=== PATIENT | female | born 1965 | race Caucasian/White ===

== ENCOUNTER 2017-09-20 08:32 | Outpatient (CLI) | payer OTHER ==
[~2017-09-20] VITALS: Ht 160 cm; Wt 63.0 kg
[2017-09-20 08:49] VITALS: BP 126/85
[2017-09-20] MEDS ORDERED: ACET-93 PO (08:56)
[2017-09-20] MEDS ORDERED: BACI1CAP6 PO (08:56)
[2017-09-20] MEDS ORDERED: MELO7.5T46 PO (08:56)
[2017-09-20 09:30] LABS: BILIRUBIN,URINE NEGATIVE (NEGATIVE); KETONES,URINE NEGATIVE (NEGATIVE); LEUKOCYTE ESTERASE ,URINE 1+ (NEGATIVE); NITRITE,URINE NEGATIVE (NEGATIVE); PH,URINE 8 (5-9); PROTEIN,URINE NEGATIVE (NEGATIVE); UROBILINOGEN,URINE NORMAL (NORMAL)
[2017-09-20 09:39] LABS: BASOPHILS % (AUTO) 1 % (0-10); EOSINOPHILS # (AUTO) 0.2 10^3/uL (0.0-0.3); EOSINOPHILS % (AUTO) 3 % (0-10); LYMPHOCYTES # (AUTO) 1.7 X 10^3 (1.0-4.0); LYMPHOCYTES % (AUTO) 25 % (12-44); MEAN CORPUSCULAR HEMOGLOBIN 31 PG (25-34); MEAN CORPUSCULAR HGB CONC 33 G/DL (32-36); MEAN CORPUSCULAR VOLUME 94 FL (80-99); MEAN PLATELET VOLUME 8.1 FL (7.4-10.4); MONOCYTES # (AUTO) 0.5 X 10^3 (0.0-1.0); MONOCYTES % (AUTO) 7 % (0-12); NEUTROPHILS # (AUTO) 4.5 X 10^3 (1.8-7.8); NEUTROPHILS % (AUTO) 65 % (42-75); PLATELET COUNT 342 10^3/uL (130-400); RED BLOOD COUNT 4.15 10^6/uL (4.35-5.85); RED CELL DISTRIBUTION WIDTH 13.1 % (10.0-14.5)
[2017-09-20 09:40] LABS: SQUAMOUS EPITHELIAL CELL,UR 0-2 /HPF; WBC,URINE 0-2 /HPF
[2017-09-20 09:50] LABS: INR 0.9 (0.8-1.4); PROTHROMBIN TIME PATIENT 12.1 SEC (12.2-14.7)
[2017-09-20 09:57] LABS: ANION GAP 7 MMOL/L (5-14); BLOOD UREA NITROGEN 15 MG/DL (7-18); BUN/CREATININE RATIO 20; CALCIUM 9.6 MG/DL (8.5-10.1); CARBON DIOXIDE 28 MMOL/L (21-32); CHLORIDE 104 MMOL/L (98-107); CREATININE SERUM 0.74 MG/DL (0.60-1.30); GFR ESTIMATED > 60; GLUCOSE 76 MG/DL (70-105); POTASSIUM 4.2 MMOL/L (3.6-5.0); SODIUM 139 MMOL/L (135-145)
--- NOTE | 2017-09-20 10:07 | Diagnostic Imaging Report ---
PA and lateral views of the chest. INDICATION: Right knee arthroplasty. FINDINGS: The lungs are clear. The heart size is normal. No effusion or pneumothorax. The mediastinum and ruth appear unremarkable. Surgical clips are seen in the upper outer right breast area. Mild scoliosis convex to the right at the thoracolumbar junction is seen. IMPRESSION: No acute process. Dictated by: Dictated on workstation # [id number]
== END 2017-09-20 09:40 | disposition home or self-care (01) ==
LOC: PREOP 08:32
PROVIDERS: ATTEND Orthopaedic Surgery
DX: Z01.810 Encounter for preprocedural cardiovascular examination (principal); Z01.811 Encounter for preprocedural respiratory examination; Z01.812 Encounter for preprocedural laboratory examination; Z11.2 Encounter for screening for other bacterial diseases; M17.11 Unilateral primary osteoarthritis, right knee; R53.83 Other fatigue
CPT/HCPCS: 36415; 71020; 80048; 81000; 85025; 85610; 86850; 86900; 86901; 87081; 93005

== ENCOUNTER 2017-10-02 08:35 | Inpatient (IN) | payer OTHER ==
[~2017-10-02] VITALS: Ht 160 cm; Wt 63.0 kg
[~2017-10-02 08:35] MED LIST: ACET-93 PO; BACI1CAP6 PO; MELO7.5T46 PO
[2017-10-02] MEDS ORDERED: ONDANSETRON 4 MG/2 ML (SDV) Z0FRAN IVP ONE (09:15)
[2017-10-02] MEDS ORDERED: GABAPENTIN 600 MG (NEURONTIN) TAB PO ONE (09:15)
[2017-10-02] MEDS ORDERED: ceFAZolin 2 GM/50 ML NS 50 ML IV ONE (09:15)
[2017-10-02] MEDS ORDERED: LACTATED RINGERS 1,000 ML IV PRN (09:15)
[2017-10-02] MEDS ORDERED: CELECOXIB 100 MG (CeleBREX) CAP PO ONE (09:15)
[2017-10-02 09:29] VITALS: BP 136/96
[2017-10-02] MEDS ORDERED: MIDAZOLAM 2 MG/2 ML (VERSED) VIAL ONE (09:38)
[2017-10-02] MEDS ORDERED: GENTAMICIN 40 MG/ML 2 ML INJ SDV ONE (09:47)
[2017-10-02] MEDS ORDERED: NEO/POLY/BAC (NEOSPORIN) OINT 15 GM TUBE ONE (09:47)
[2017-10-02] MEDS ORDERED: INTRA-ARTICULAR IU ONE ×4 (10:00)
[2017-10-02] MEDS ORDERED: fentaNYL INJECTION 100 MCG/2 ML AMP ONE (10:11)
[2017-10-02] MEDS ORDERED: proPOfol 200 MG/20 ML (DIPRIVAN) VIAL IV ONE (10:11)
[2017-10-02] MEDS ORDERED: LIDOCAINE PF 2% 5 ML (XYLOCAINE) VIAL ONE (10:11)
[2017-10-02] MEDS ORDERED: BUPIVACAINE 0.5% 30 ML (SENSORCAINE) VIAL ONE (10:12)
--- NOTE | 2017-10-02 10:12 | Progress Note-Pre Operative ---
Pre-Operative Progress Note H&P Reviewed The H&P was reviewed, patient examined and no changes noted. Date Seen by Provider: Oct 02, 2017 Time Seen by Provider: 10:00 Date H&P Reviewed: Oct 02, 2017 Time H&P Reviewed: 10:00 Pre-Operative Diagnosis: Primary osteoarthritis right knee SHARON DORAN DO Oct 02, 2017 10:12 am
[2017-10-02] MEDS ORDERED: SCOPOLAMINE 1.5 MG (TRANSDERM-SCOP) PATCH TOP ONE (10:15)
[2017-10-02] MEDS ORDERED: FAMOTIDINE 20MG/2ML IV (PEPCID) IV ONE (10:15)
[2017-10-02] MEDS ORDERED: SCOPOLAMINE 1.5 MG (TRANSDERM-SCOP) PATCH TOP SCH (10:30)
[2017-10-02] MEDS ORDERED: ONDANSETRON 4 MG/2 ML (SDV) Z0FRAN IVP PRN ×2 (10:30→12:45)
[2017-10-02] MEDS ORDERED: morphine INJ 10 MG/ML 1ML (SYR OR VIAL) IVP PRN (10:30)
[2017-10-02] MEDS ORDERED: KETOROLAC 15 MG/ML VIAL IVP PRN (10:30)
[2017-10-02] MEDS ORDERED: BACLOFEN 10 MG (LIORESAL) TAB PO PRN (10:30)
[2017-10-02] MEDS ORDERED: PROMETHAZINE INJ 25 MG/ML (PHENERGAN) AMP IVP PRN (10:30)
[2017-10-02] MEDS ORDERED: BISACODYL 10 MG SUPP (DULCOLAX) PR PRN (10:30)
[2017-10-02] MEDS ORDERED: diphenhydrAMINE 50 MG/ML INJ (BENADRYL) IV PRN (10:30)
[2017-10-02] MEDS ORDERED: TRANEXAMIC ACID 100 MG/ML 10 ML INJECTION IV ONE (10:31)
[2017-10-02] MEDS ORDERED: KETOROLAC 30 MG/ML VIAL ONE (12:04)
[2017-10-02] MEDS ORDERED: SEVOFLURANE (ULTANE) 15 ML INHAL SOLN ONE (12:04)
--- NOTE | 2017-10-02 12:23 | Progress Note-Post Operative ---
Post-Operative Progess Note Surgeon (s)/Automotive General Sales Manager (s) Surgeon SHARON DORAN DO Automotive General Sales Manager: Geovany Cleveland CONCRETE SMOOTHER-Candelario Pre-Operative Diagnosis Primary osteoarthritis right knee Post-Operative Diagnosis same Procedure & Operative Findings Date of Procedure 10/02/17 Procedure Performed/Findings Right total knee arthroplasty Anesthesia Type General with femoral nerve block Estimated Blood Loss Estimated blood loss (mL): 50 ml Specimens/Packing Specimens Removed none SHARON DORAN DO Oct 02, 2017 12:23 pm
[2017-10-02] MEDS ORDERED: HYDROmorphone (DILAUDID) 2 MG/ML VIAL ONE (12:37)
[2017-10-02] MEDS ORDERED: MEPERIDINE (DEMEROL) INJ 50 MG/ML IVP PRN (12:45)
[2017-10-02] MEDS ORDERED: KETOROLAC 30 MG/ML VIAL IVP ONE (12:45)
[2017-10-02] MEDS ORDERED: HYDROmorphone (DILAUDID) 2 MG/ML VIAL IVP PRN (12:45)
[2017-10-02] MEDS ORDERED: morphine INJ 10 MG/ML 1ML (SYR OR VIAL) IVP ONE (12:45)
--- NOTE | 2017-10-02 13:19 | Diagnostic Imaging Report ---
INDICATION: Status post knee replacement. COMPARISON: None. FINDINGS: Two views of the right knee were obtained. Expected postoperative changes are seen from right knee total arthroplasty. Femoral and tibial components appear well-seated. There is no evidence of periprosthetic fracture. There is a small amount of subcutaneous emphysema in the soft tissues over the knee. of the patella. Skin anel are seen centrally over the anterior aspect of the knee. No unexpected radiopaque foreign bodies are identified. IMPRESSION: Expected postsurgical changes from right knee total arthroplasty, as described above. No unexpected radiopaque foreign bodies. Dictated by: Dictated on workstation # [id number]
[2017-10-02 13:42] VITALS: BP 158/76
[2017-10-02] MEDS: HYDROcodone/APAP 10 MG/325 MG (LORTAB) TAB PO PRN (14:40)
[2017-10-02] MEDS: D5 1/2 NS 1000 ML IV SOLUTION 1,000 ML IV SCH (14:40)
[2017-10-02 16:00] VITALS: BP 133/68
[2017-10-02] MEDS: ceFAZolin 2 GM/50 ML NS 50 ML IV SCH (18:02)
--- NOTE | 2017-10-02 18:10 | OPERATIVE REPORT ---
DATE OF SERVICE: REFERRING PHYSICIAN: Dr. Wilber Yanez. PREOPERATIVE DIAGNOSIS: Primary osteoarthritis, right knee. POSTOPERATIVE DIAGNOSIS: Primary osteoarthritis, right knee. PROCEDURE: Right total knee arthroplasty. SURGEON: Sharon Hernandez. ELECTRICAL CHECKOUT MECHANIC: JANICE Nicholson. SURGICAL ELECTRICAL CHECKOUT MECHANIC DUTIES: Geovany Cleveland, surgical attendant was utilized throughout the entire procedure for the patient positioning, soft tissue retraction, placement of metallic implants, wound closure, dressing application and patient transfer. ANESTHESIA: General with femoral nerve block. ESTIMATED BLOOD LOSS: 50 mL. INDICATIONS AND FINDINGS: The patient is a 51-year-old female seen with chief complaint of progressive right knee pain nonresponsive to conservative treatment. The patient demonstrated collapse of the medial compartment with a varus deformity and significant degenerative changes of the patellofemoral joint along with an incompetent anterior cruciate ligament. The patient was taken to surgery where total knee arthroplasty was performed on the right without complication utilizing the Biomet MyDROBEguard total knee system with a press fit 62.5 mm femoral component, a cemented 67 mm fixed I-beam tibial plate along with a 34 mm 3-pronged polyethylene cemented thin patella along with a 12 mm anterior stabilized tibial bearing implant. Palacos bone cement was utilized. PROCEDURE IN DETAIL: The patient was seen by anesthesia preoperatively and under ultrasound guidance, a femoral nerve block was performed on the right to decrease postop pain and decrease amount of medication required during the surgical procedure. The patient was transported to the operating room where a general inhalation anesthetic was administered. A well-padded pneumatic tourniquet was placed about the upper aspect of the right thigh. A ChloraPrep and sterile drape of the right lower extremity was performed. The right leg was elevated, exsanguinated and the tourniquet was inflated to 300 mmHg pressure. An anterior longitudinal midline incision was made over the anterior surface of the right knee. The incision was deepened through a medial parapatellar incision. The patella was subluxed laterally. Osteophytes from the medial femoral condyle and the medial tibial plateau were removed with a bone rongeur. A missile control pilot hole was then drilled in the distal femur. An intramedullary salma was inserted. The distal femur was sized to a 62.5 mm femoral component. A four way cutting block was assembled and anterior, posterior and chamfer cuts of the distal femur were performed. The tibia was subluxed anteriorly. The remnants of the anterior cruciate ligament were excised. The remnants of the medial and lateral menisci were excised. A missile control pilot hole was then drilled into the proximal tibia. An intramedullary salma was inserted measuring off the exposed bone over the proximal medial tibia. A proximal tibial cutting guide was assembled and a proximal tibial osteotomy was completed. The proximal tibia was sized to a 67 mm component. The knee was taken into full extension. Osteophytes were removed from the patellar rim. The posterior 8 mm of the patella was resected through a cutting guide and drilled through a drill guide. Provisional components were inserted. The knee was cycled through a range of motion. Rotation of the tibial component was noted and marked on the proximal tibia. The proximal tibia was then broached to accept the I-beam stem portion of the implant. The bony surfaces were irrigated extensively with normal saline solution. Palacos bone cement was then mixed. This was pressurized in the proximal tibia and the tibial component was cemented in place. The femoral component was press fit into place. The knee was taken in full extension with a provisional tibial bearing implant. The patellar component was cemented in place and held with a clamp. Excessive cement was removed. The cement was allowed to set. The knee was examined with initially an 11 mm anterior stabilized implant with the patient demonstrating a slight degree of instability in mid range flexion. A 12 mm provisional implant was inserted and full extension of the knee was obtained with no mid range or full flexion instability noted. The provisional implant was removed. The 12 mm anterior stabilized tibial bearing implant was inserted and locked anteriorly with a locking bar. The tourniquet was released. Hemostasis was obtained with electrocautery. The knee was placed in 90 degrees of flexion. The medial retinaculum was closed with multiple interrupted [id number] sutures of #1 Vicryl, reinforced with a running suture of #1 Stratafix. The subcutaneous tissue were closed with 0 and 2-0 Vicryl suture. The skin was closed with stainless steel anel. An Adaptic, Neosporin, bulky dressing is placed about the right knee. The patient was awake and was transported to postop recovery with anesthesia personnel present in satisfactory condition. Job ID: [id number] DocumentID: [id number] Dictated Date: 10/02/2017 13:29:23 Chips Screen Tender Date: 10/02/2017 18:10:06 Dictated By: SHARON HERNANDEZ DO
[2017-10-02 20:00] VITALS: BP 161/81
[2017-10-02] MEDS: MELOXICAM 7.5 MG (MOBIC) TABLET PO SCH (20:59)
[2017-10-02] MEDS: NEO/POLY/BAC (NEOSPORIN) OINT 15 GM TUBE TOP SCH (22:05)
[2017-10-03] VITALS: BP 98/53
[2017-10-03] MEDS: ceFAZolin 2 GM/50 ML NS 50 ML IV SCH (01:45)
[2017-10-03] MEDS: HYDROcodone/APAP 10 MG/325 MG (LORTAB) TAB PO PRN ×4 (04:02→20:23)
[2017-10-03 04:16] VITALS: BP 104/60
[2017-10-03 05:54] LABS: MEAN PLATELET VOLUME 8.5 FL (7.4-10.4); RED BLOOD COUNT 3.19 10^6/uL (4.35-5.85); RED CELL DISTRIBUTION WIDTH 13.2 % (10.0-14.5); WHITE BLOOD COUNT 8.1 10^3/uL (4.3-11.0)
[2017-10-03 06:15] LABS: ANION GAP 6 MMOL/L (5-14); BLOOD UREA NITROGEN 13 MG/DL (7-18); BUN/CREATININE RATIO 20; CALCIUM 8.1 MG/DL (8.5-10.1); CARBON DIOXIDE 24 MMOL/L (21-32); CHLORIDE 107 MMOL/L (98-107); CREATININE SERUM 0.66 MG/DL (0.60-1.30); GFR ESTIMATED > 60; GLUCOSE 117 MG/DL (70-105); SODIUM 137 MMOL/L (135-145)
[2017-10-03] MEDS: D5 1/2 NS 1000 ML IV SOLUTION 1,000 ML IV SCH ×2 (07:15→20:22)
[2017-10-03 08:00] VITALS: BP 99/86
--- NOTE | 2017-10-03 08:54 | Physical Therapy Evaluation ---
PT Evaluation-General Medical Diagnosis Admission Date Oct 02, 2017 at 08:50 Medical Diagnosis: right TKA Onset Date: Oct 02, 2017 Therapy Diagnosis Therapy Diagnosis: impaired mobility, strength, ROM Height/Weight Height (Feet): 5 Height (Inches): 3.00 Weight (Pounds): 139 Weight (Ounces): 0.0 Precautions Precautions/Isolations: Standard Precautions Weight Bear Status Right Lower Extremity: Right Weight Bearing/Tolerated Left Lower Extremity: Left Full Weight Bearing Referral Physician: Geovany Cleveland APRN Reason for Referral: Evaluation/Treatment Medical History Reviewed History: Yes Social History Home: Single Level Current Living Status: Spouse Entry Into Home: Stairs With Railing PT Steps Inside Home: 6 Patient lives in sort of a split level home with stairs to go up or down as you enter. Prior/Core FIM Prior Level of Function Functional [place] Measure 0=Not Assessed/NA 4=Minimal Assistance 1=Total Assistance 5=Supervision or Setup 2=Maximal Assistance 6=Modified [place] 3=Moderate Assistance 7=Complete [place] Bed Mobility: 7 Transfers (B,C,W/C) (FIM): 7 Gait: 7 PT Evaluation-Current Subjective Patient in bed pre tx, agrees to PT, has 5/10 pain. Pt/Family Goals to be independent at home Objective Patient Orientation: Normal For Age Attachments: Polar Pack, IV ROM/Strength ROM Lower Extremities right knee flexion 80 degrees, extension +5 degrees Strength Lower Extremities NT Sensory Vision: Wears Glasses Hearing: Functional Sensation Right Lower Extremit: Intact Sensation Left Lower Extremity: Intact Sensation Lower Extremities Patient has no complaints of numbness or tingling. Transfers Functional [place] Measure 0=Not Assessed/NA 4=Minimal Assistance 1=Total Assistance 5=Supervision or Setup 2=Maximal Assistance 6=Modified [place] 3=Moderate Assistance 7=Complete [place] Transfers (B, C, W/C) (FIM): 4 Scootin Rollin Supine to/from Sit: 5 Sit to/from Stand: 4 Patient performs bed mobility with SBA, sit to stand and transfers with CGA Gait Mode of Locomotion: Walk Anticipated Mode of Locomotion: Walk Gait (FIM): 4 Distance: 150' Gait Level of Assist: 4 Gait Persons Needed: 1 Gait Assistive Device: FWW Comments/Gait Description Patient ambulated 150' with a rolling walker with CGA. She did have some unsteadiness due to weakness in her right leg, she could not bear much weight on it, but no LOB. Balance Sitting Static: Normal Sitting Dynamic: Normal Standing Static: Fair Standing Dynamic: Fair Treatment RLE exercises supine x10 (AP, QS, HS, SAQ, SLR) Assessment/Needs Patient has impaired mobility, strength, ROM post right TKA. CPM donned and set to 60/-2 degrees. Rehab Potential: Fair PT Short Term Goals Short Term Goals Time Frame: Oct 10, 2017 Transfers (B,C,W/C) (FIM): 5 Gait (FIM): 5 Gait Distance Comment: 200' Gait Level of Assist: 5 Gait Assistive Device: FWW PT Plan Problem List Problem List: Activity Tolerance, Functional Strength, Safety, Balance, Gait, Transfer, Bed Mobility, ROM Treatment/Plan Treatment Plan: Continue Plan of Care Treatment Plan: Bed Mobility, Education, Functional Activity Gay, Functional Strength, Gait, Safety, Therapeutic Exercise, Transfers Treatment Duration: Oct 10, 2017 Frequency: 11 times per week Estimated Hrs Per Day: .25 hour per day (15-30') Patient and/or Family Agrees t: Yes Safety Risks/Education Patient Education: Gait Training, Transfer Techniques, Reviewed Precautions, Reviewed Use of Ice, Correct Positioning, Disease Process, Safety Issues Teaching Recipient: Patient Teaching Methods: Demonstration, Discussion Response to Teaching: Reinforcement Needed Discharge Recommendations Plan Patient will perform bed mobility and transfer training, balance and endurance training, functional strengthening, stair training, gait training, and education , to improve functional mobility and independence at home. Therapy D/C Recommendations: Home w/ Family Support Time/GCodes Time In: 815 Time Out: 845 Total Billed Treatment Time: 30 Total Billed Treatment 1 visit EVL 15' GT 15' VIK PAYTON PT Oct 03, 2017 08:53
[2017-10-03] MEDS: ENOXAPARIN 40 MG/0.4 ML (LOVENOX) SYR SC SCH (09:30)
[2017-10-03] MEDS: NEO/POLY/BAC (NEOSPORIN) OINT 15 GM TUBE TOP SCH ×2 (09:31→20:22)
[2017-10-03] MEDS: ASPIRIN E.C. 325 MG (ECOTRIN) TABLET PO SCH (09:31)
[2017-10-03] MEDS: LACTOBACILLUS Acidoph/Bulgar (LACTINEX/FLORANEX) TAB PO SCH (09:31)
[2017-10-03] MEDS: MELOXICAM 7.5 MG (MOBIC) TABLET PO SCH ×2 (09:31→20:23)
[2017-10-03] MEDS ORDERED: INFLUENZA TRIvalent 2017-2018 0.5 ML/45 MCG SYR IM ONE (11:30)
[2017-10-03 12:00] VITALS: BP 103/58
--- NOTE | 2017-10-03 12:54 | Occupational Therapy Eval ---
OT Evaluation-General/PLF Medical Diagnosis Admission Date Oct 02, 2017 at 08:50 Medical Diagnosis: right TKA Onset Date: Oct 02, 2017 Therapy Diagnosis Therapy Diagnosis: decr self care Height/Weight Height (Feet): 5 Height (Inches): 3.00 Weight (Pounds): 139 Weight (Ounces): 0.0 Precautions Precautions/Isolations: Standard Precautions Safety Interventions: None Referral Physician: Geovany Cleveland APRN Referral Reason: Evaluation/Treatment Medical History Pertinent Medical History: Breast CA S/P Mastectomy (R) Additional Medical History R mastectomy, L breast reduction. Bilateral CTS. Lymphedema R arm, per pt report Current History Admitted for elective R TKA 10-02-17 Reviewed History: Yes Social History Home: Single Level Current Living Status: Spouse Entry Into Home: Stairs With Railing Steps Inside Home: 6 Pt reported that she has two adult sons that will be staying with her as well ADL-Prior Level of Function ADL PLOF Comments Pt reported that she was able to manage all of her basic ADLs prior to surgery. She works for [employer] and drives. OT Current Status Subjective Pt seen in room, up in bed, agreeable to OT. Pt reported pain 5/10 and described it as "there", in R knee. Appearance Alert, cooperative Mental Status/Objective Attachments: IV, Polar Pack, Other-See Comments (CPM) Current Glasses/Contacts: Yes Hand Dominance: Right Upper Extremity ROM Grossly WFL bilat Upper Extremity Strength Grossly WFl bilat Edema: Pt noted some increased swelling in R UE Pt said that she had a sleeve to manage her lymphedema but that it increased her pain so she doesn't use it. She is aware of massage techniques ADL-Treatment ADL-Current Pt verbalized that she has been up to the bathroom several times and flores no difficulty getting on/off tall toilet with grab bar, FWW. Pt educ on getting on/ off taller chairs, chairs with arms. Also discussed toilet risers and BSc over toilet to provide arms to help with transfers. Pt educ modified techniques for tub transfers, use of shower chair and lower body dressing. Pt is not interested in adapted equipment for lower body dressing, stating that she will have family members to help. All questions answered and pt is confident in her discharge plans. Functional [place] Measure 0=Not Assessed/NA 4=Minimal Assistance 1=Total Assistance 5=Supervision or Setup 2=Maximal Assistance 6=Modified [place] 3=Moderate Assistance 7=Complete IndependenceIRFPAI Quality Coding Scale 6 Independent with activity with or without an assistive device 5 Patient requires set up or clean up by helper. Patient completes activity by themselves 4 Supervision or touching assist (CGA). [place] provide cues , steadying assist 3 The helper provides less than half the effort to complete the activity 2 The helper provides more than half the effort to complete the activity 1 Dependent. The helper does all the effort to complete an activity 7 Patient refused to complete or attempt activity 9 The patient did not perform the activity before the current illness or injury 88 Not attempted due to Medical conditions or safety concerns Education OT Patient Education: Modified ADL techniques, Purpose of tx/functional activities, Rehab process, Use of adapted equipment Teaching Recipient: Patient Teaching Methods: Discussion Response to Teaching: Verbalize Understanding OT Short Term Goals Short Term Goals Transfers (B,C,W/C) (FIM): 5 1=Demonstrate adherence to instructed precautions during ADL tasks. 2=Patient will verbalize/demonstrate understanding of assistive devices/ modifications for ADL. 3=Patient will improve strength/tolerance for activity to enable patient to perform ADL's. OT Nuclear Auxiliary Operator Goals Nuclear Auxiliary Operator Goals Time Frame: Oct 03, 2017 Additional Goals: 2-Verbalize Understanding (goal met. DC) 2=Patient will verbalize/demonstrate understanding of assistive devices/ modifications for ADL. OT Education/Plan Problem List/Assessment Assessment: Impaired Self-Care Skills Pt would benefit from skilled OT to increase her independence with basic ADLs to allow her to safely return home and to decrease caregiver burden. Discharge Recommendations Plan/Recommendations: Discharge/Goals Met Treatment Plan/Plan of Care Treatment,Training & Education: Yes Patient would benefit from OT for education, treatment and training to promote independence in ADL's, mobility, safety and/or upper extremity function for ADL' s. Plan of Care: ADL Retraining Treatment Duration: Oct 03, 2017 Frequency: 1 time per week Estimated Hrs Per Day: .25 hour per day Agreement: Yes Rehab Potential: Good Time/GCodes Start Time: 11:10 Stop Time: 11:34 Total Time Billed (hr/min): 24 Billed Treatment Time visit, 10 minutes evaluation low intensity, 14 minutes ADL LEE CONDE OT Oct 03, 2017 12:54
--- NOTE | 2017-10-03 13:03 | Consultation-Hospitalist ---
HPI History of Present Illness: HPI/Chief Complaint Pt is a 51yoCF who was admitted for right knee replacement. I am consulted for medical management. She denies any current medical problems but does have a history of breast cancer in 1995 s/p mastectomy. She reports doing well. She has been up and ambulating already and tolerated it well. She reports that she is planning for discharge tomorrow. Source: patient Exam Limitations: no limitations Date Seen 10/03/17 Attending Physician Dawson Hernandez DO PCP Wilber Yanez Jr, Referring Physician Dr. Hernandez Date of Admission Oct 02, 2017 at 08:50 Home Medications & Allergies Home Medications Reviewed patient Home Medication Reconciliation Form Allergies Allergies Coded Allergies No Known Drug Allergies ([id number]/7/17) Past Jggnzut-Mqherg-Olokde Hx Patient Social History Marrital Status: Alcohol Use: Denies Use Recreational Drug Use: No Smoking Status: Never a Smoker Physical Abuse Screen: No Sexual Abuse: No Recent Foreign Travel: No Contact w/other who traveled: No Recent Hopitalizations: No Seasonal Allergies Seasonal Allergies: Yes Surgeries Yes (right mastectomy and breast reduction) Respiratory No Cardiovascular No Neurological No Genitourinary No Gastrointestinal No Musculoskeletal Yes Arthritis Endocrine History of Endocrine Disorders: No HEENT History of HEENT Disorders: No Cancer Yes Breast Type of Treatment: Chemotherapy, Surgical Intervention Psychosocial History of Psychiatric Problem: No Integumentary History of Skin or Integumenta: No Blood Transfusions History of Blood Disorders: No Family Medical History Family Hx: Arthritis 19 MOTHER Hypertension 19 FATHER Review of Systems Constitutional: No chills, No fever EENTM: No blurred vision, No double vision, No nose congestion, No throat pain Respiratory: No cough, No dyspnea on exertion, No short of breath Cardiovascular: No chest pain, No edema, No palpitations Gastrointestinal: No abdominal pain, No constipation, No diarrhea, No nausea, No vomiting Genitourinary: No dysuria, No frequency Musculoskeletal: joint pain, No muscle pain Skin: No lesions, No rash Psychiatric/Neurological: Denies Headache, Denies Numbness, Denies Tingling Physical Exam Physical Exam Vital Signs Vital Sign - Last 12Hours 10/02/17 09:29 Temp 97.7 Pulse 86 Resp 16 B/P (MAP) 136/96 (109) Pulse Ox 99 O2 Delivery Room Air Capillary Refill : General Appearance: No Apparent Distress, WD/WN HEENT: PERRL/EOMI, Moist Mucous Membranes Neck: Non Tender, Supple Respiratory: Lungs Clear, No Respiratory Distress Cardiovascular: Regular Rate, Rhythm, No Murmur Gastrointestinal: Normal Bowel Sounds, Non Tender, Soft Extremity: Normal Capillary Refill, No Calf Tenderness, Other (right knee in brace) Neurologic/Psychiatric: Alert, Oriented x3, Normal Mood/Affect Skin: Normal Color, Warm/Dry Results Results/Procedures Lab Laboratory Tests 10/03/17 05:40 Assessment/Plan Admission Diagnosis right knee osteoarthritis Diagnosis/Problems Diagnosis/Problems (1) Primary osteoarthritis of right knee Assessment & Plan: s/p replacement PT/OT Management per primary has walker at home will need PT/OT at DC (2) Normocytic anemia Assessment & Plan: Mild, will start iron on discharge Clinical Quality Measures DVT/VTE Risk/Contraindication: Risk Factor Score Per Nursin RFS Level Per Nursing on Admit: 4+=Very High DAMIAN ARRINGTON MD Oct 03, 2017 13:03
--- NOTE | 2017-10-03 13:08 | Progress Note (SOAP) ---
Subjective Date Seen by Provider: Oct 03, 2017 Time Seen by Provider: 13:00 Subjective/Events-last exam No complaints doing well Objective Exam Vital Signs Date Time Temp Pulse Resp B/P (MAP) Pulse Ox O2 Delivery O2 Flow Rate FiO2 10/03/17 10:10 97.4 10/03/17 10:10 97.4 10/03/17 09:37 97.4 10/03/17 08:00 97.4 86 20 99/86 (90) 97 Room Air 10/03/17 04:16 98.4 77 17 104/60 (75) 99 Room Air 10/03/17 00:00 98.7 78 18 98/53 (68) 95 Room Air 10/02/17 20:00 97.8 77 18 161/81 (107) 97 Room Air 10/02/17 16:00 96.8 86 18 133/68 (89) 92 Room Air 10/02/17 14:00 96 Room Air 10/02/17 13:42 96.9 73 16 158/76 (103) 95 Room Air I & O 10/03/17 07:00 Intake Total 2400 ml Output Total 850 ml Balance 1550 ml Capillary Refill : General Appearance: No Apparent Distress, WD/WN Extremity: Normal Capillary Refill, No Calf Tenderness, No Pedal Edema Neurologic/Psychiatric: Oriented x3 Skin: Warm/Dry Results Lab Laboratory Tests 10/03/17 05:40: White Blood Count 8.1, Red Blood Count 3.19L, Hemoglobin 10.0L, Hematocrit 31L, Mean Corpuscular Volume 97, Mean Corpuscular Hemoglobin 31, Mean Corpuscular Hemoglobin Concent 32, Red Cell Distribution Width 13.2, Platelet Count 204, Mean Platelet Volume 8.5, Sodium Level 137, Potassium Level 4.0, Chloride Level 107, Carbon Dioxide Level 24, Anion Gap 6, Blood Urea Nitrogen 13, Creatinine 0.66, Estimat Glomerular Filtration Rate > 60, BUN/Creatinine Ratio 20, Glucose Level 117H, Calcium Level 8.1L Assessment/Plan Assessment/Plan Assess & Plan/Chief Complaint Status post right total knee arthroplasty POD 1 Continue PT Possible discharge tomorrow vs sunday Final Diagnosis Primary osteoarthritis right knee Clinical Quality Measures DVT/VTE Risk/Contraindication: Risk Factor Score Per Nursin RFS Level Per Nursing on Admit: 4+=Very High SHARON DORAN DO Oct 03, 2017 1:08 pm
[2017-10-03] MEDS ORDERED: HYDR-3820 PO (13:15)
[2017-10-03] MEDS ORDERED: ASPI325T32 PO (13:15)
[2017-10-03] MEDS ORDERED: SENN-20 PO (13:15)
--- NOTE | 2017-10-03 14:18 | Anesthesia-General Post-Op ---
General Patient Condition Mental Status/LOC: Same as Preop Cardiovascular: Satisfactory Nausea/Vomiting: Absent Respiratory: Satisfactory Pain: Controlled Complications: Absent Post Op Complications Complications None Follow Up Care/Instructions Patient Instructions None needed. Anesthesia/Patient Condition Patient Condition Patient is doing well, no complaints, stable vital signs, no apparent adverse anesthesia problems. No complications reported per nursing. RUSS FAM CRNA Oct 03, 2017 14:18
--- NOTE | 2017-10-03 16:26 | Physical Therapy Daily Note ---
PT Daily Note-Current Subjective Pt sitting up in bed upon arrival. Pt agrees to PT. Pain Numeric Pain Scale: 6 Location: Right Location Body Site: Knee Pain Description: Ache, Tightness Mental Status Patient Orientation: Person, Place, Time, Situation Attachments: Polar Pack, IV Transfers Functional [place] Measure 0=Not Assessed/NA 4=Minimal Assistance 1=Total Assistance 5=Supervision or Setup 2=Maximal Assistance 6=Modified [place] 3=Moderate Assistance 7=Complete IndependenceIRFPAI Quality Coding Scale 6 Independent with activity with or without an assistive device 5 Patient requires set up or clean up by helper. Patient completes activity by themselves 4 Supervision or touching assist (CGA). [place] provide cues , steadying assist 3 The helper provides less than half the effort to complete the activity 2 The helper provides more than half the effort to complete the activity 1 Dependent. The helper does all the effort to complete an activity 7 Patient refused to complete or attempt activity 9 The patient did not perform the activity before the current illness or injury 88 Not attempted due to Medical conditions or safety concerns Scootin Supine to/from Sit: 5 Sit to/from Stand: 5 Weight Bearing Right Lower Extremity: Right Weight Bearing/Tolerated Left Lower Extremity: Left Full Weight Bearing Gait Training Distance (FIM): 3=150 ft Distance: 200' Gait Level of Assist: 5 Gait Persons Needed: 1 Gait Assistive Device: FWW Pt walks with more normalized gait pattern. Pt's walks a little "tender footed " on R foot due to discomfort. Exercises Seated Therapy Exercises: Ankle pumps, Long arc quads, Hip flexion, Kicking activity Seated Reps: 15 Treatments Pt transfers from Supine to standing using FWW at [facility]. Pt uses restroom before ambulating in hallway with FWW at [facility]. Pt returns to room to rest in recliner followed by Seated Ex. Pt rests reclined in recliner with feet propped on pillow at end of tx with all needs met. Assessment Current Status: Good Progress Pt is making good improvement with transfers and ambulation. Pt reports a little discomfort although it doesn't seem to limit participation in tx. PT Short Term Goals Short Term Goals Time Frame: Oct 10, 2017 Transfers (B,C,W/C) (FIM): 5 Gait (FIM): 5 Gait Distance Comment: 200' Gait Level of Assist: 5 Gait Assistive Device: FWW PT Plan Problem List Problem List: Activity Tolerance, Gait Treatment/Plan Treatment Plan: Continue Plan of Care Treatment Plan: Bed Mobility, Education, Functional Activity Gay, Functional Strength, Gait, Safety, Therapeutic Exercise, Transfers Treatment Duration: Oct 10, 2017 Frequency: 11 times per week Estimated Hrs Per Day: .25 hour per day (15-30') Patient and/or Family Agrees t: Yes Safety Risks/Education Patient Education: Gait Training, Correct Positioning, Safety Issues Teaching Recipient: Patient Teaching Methods: Discussion Response to Teaching: Verbalize Understanding Time/GCodes Time In: 1520 Time Out: 1550 Total Billed Treatment Time: 30 Total Billed Treatment 1,GT (15m) & EX (15m) ROB KRISHNAMURTHY OPERATIONAL RISK ANALYST Oct 03, 2017 16:26
[2017-10-03 16:29] VITALS: BP 118/58
[2017-10-03 19:27] VITALS: BP 124/76
[2017-10-03] MEDS: SENNA W/DOCUSATE (SENOKOT S) TABLET PO SCH (20:23)
[2017-10-04] MEDS: HYDROcodone/APAP 10 MG/325 MG (LORTAB) TAB PO PRN ×4 (00:20→12:33)
[2017-10-04 00:40] VITALS: BP 130/75
[2017-10-04 04:58] VITALS: BP 119/74
[2017-10-04 06:08] LABS: MEAN PLATELET VOLUME 8.4 FL (7.4-10.4); RED BLOOD COUNT 2.92 10^6/uL (4.35-5.85); RED CELL DISTRIBUTION WIDTH 12.9 % (10.0-14.5); WHITE BLOOD COUNT 6.9 10^3/uL (4.3-11.0)
[2017-10-04 06:37] LABS: ANION GAP 9 MMOL/L (5-14); BLOOD UREA NITROGEN 7 MG/DL (7-18); BUN/CREATININE RATIO 11; CALCIUM 8.3 MG/DL (8.5-10.1); CARBON DIOXIDE 24 MMOL/L (21-32); CHLORIDE 107 MMOL/L (98-107); CREATININE SERUM 0.61 MG/DL (0.60-1.30); GFR ESTIMATED > 60; GLUCOSE 113 MG/DL (70-105); POTASSIUM 3.7 MMOL/L (3.6-5.0); SODIUM 140 MMOL/L (135-145)
--- NOTE | 2017-10-04 07:14 | Progress Note (SOAP) ---
Subjective Date Seen by Provider: Oct 04, 2017 Time Seen by Provider: 07:12 Subjective/Events-last exam Pain is fairly well controlled. Currently no complaints. Objective Exam Vital Signs Date Time Temp Pulse Resp B/P (MAP) Pulse Ox O2 Delivery O2 Flow Rate FiO2 10/04/17 04:58 98.7 104 18 119/74 (89) 94 Room Air 10/04/17 00:40 98.5 100 20 130/75 (93) 95 Room Air 10/03/17 19:27 99.0 116 17 124/76 (92) 98 Room Air 10/03/17 16:29 99.3 114 17 118/58 (78) 98 Room Air 10/03/17 15:04 99.3 10/03/17 12:00 98.0 90 20 103/58 (73) 96 Room Air 10/03/17 10:10 97.4 10/03/17 09:37 97.4 10/03/17 08:00 97.4 86 20 99/86 (90) 97 Room Air I & O 10/04/17 07:00 Intake Total 3360 ml Output Total 3150 ml Balance 210 ml Capillary Refill : General Appearance: No Apparent Distress Respiratory: No Accessory Muscle Use, No Respiratory Distress Cardiovascular: Regular Rate, Rhythm, No Edema Gastrointestinal: non tender, soft Extremity: Normal Capillary Refill, Normal Inspection, No Calf Tenderness, No Pedal Edema Neurologic/Psychiatric: Alert, Oriented x3, No Motor/Sensory Deficits, Normal Mood/Affect Skin: Normal Color, Warm/Dry (dressing to right knee CDI) Results Lab Laboratory Tests 10/04/17 05:51: White Blood Count 6.9, Red Blood Count 2.92L, Hemoglobin 9.0L, Hematocrit 28L, Mean Corpuscular Volume 96, Mean Corpuscular Hemoglobin 31, Mean Corpuscular Hemoglobin Concent 32, Red Cell Distribution Width 12.9, Platelet Count 178, Mean Platelet Volume 8.4, Sodium Level 140, Potassium Level 3.7, Chloride Level 107, Carbon Dioxide Level 24, Anion Gap 9, Blood Urea Nitrogen 7, Creatinine 0.61, Estimat Glomerular Filtration Rate > 60, BUN/Creatinine Ratio 11, Glucose Level 113H, Calcium Level 8.3L Assessment/Plan Assessment/Plan Assess & Plan/Chief Complaint A: s/p right TKA Primary OA right knee acute blood loss anemia P: Continue current treatment. Plan to DC to home with home health this afternoon. arrange [facility] physical therapy 5x/week x 2 weeks. remove anel POD 10 per home health Clinical Quality Measures DVT/VTE Risk/Contraindication: Risk Factor Score Per Nursin RFS Level Per Nursing on Admit: 4+=Very High VINAY GATICA APRN Oct 04, 2017 7:14 am
[2017-10-04] MEDS ORDERED: IRON-17 PO (07:16)
[2017-10-04] MEDS ORDERED: TRAM50TA2 PO (07:16)
--- NOTE | 2017-10-04 07:22 | D/C HH Face to Face Order ---
D/C Face to Face Orders Instructions for Patient Patient Instructions/FollowUp: f/u 2 1/[address] Enrique standard TKA DC instructions Physician to follow Patient: Mary Discharge Diet for Home: No Restrictions Patient Problems: s/p right TKA Primary OA right knee acute blood loss anemia Goals for Patient: independence with ADLs Patient Data-Allergies,Ht & Wt Patient Allergies: Coded Allergies: No Known Drug Allergies (Unverified , 09/20/17) Height (Feet): 5 Height (Inches): 3.00 Weight (Pounds): 139 Weight (Ounces): 0.0 Home Health Need/Face to Face Date of Face to Face: Oct 04, 2017 Clinical Findings: Muscle weakness, Pain with ambulation, Unsteady gait I have seen Pt [id number]: Yes Discharged To: Home Diagnosis/Conditions: s/p right TKA Primary OA right knee acute blood loss anemia Problems/Diagnosis/Condition: Patient is Homebound due to: Minnie fall risk due to instabilty, Pain w/ ambulation Homebound Status Due to the above stated illness, injury or surgical procedure (medical condition or diagnosis) and associated clinical findings, the patient is homebound because of his/her inability to leave home except with aid of a supportive device and/or person AND leaving the home requires a considerable and taxing effort or is medically contraindicated. Pt req the following assistanc: [facility] Nursing Orders Home Health Services Order: Nursing Services, Physical Therapy-Evaluate & Treat physical therapy 5x/week x 2 weeks to assist with ambulation and treat ROM remove anel and apply steri strips POD 10 Home Health Infusion Therapy Line Start Date: Oct 02, 2017 Line Start Time: 909 Therapy Orders Therapy Orders: Physical Therapy Therapy Specific Orders: Gait training, Increase strength/endurance, Restore ROM Certify Stmt I certify that this patient is under my care and that I, a nurse practitioner or a physician; a producer assistant working with me, had a face to face encounter that - meets the physician face to face encounter requirements with this patient as dated. VINAY GATICA APRN Oct 04, 2017 7:22 am
[2017-10-04 08:00] VITALS: BP 119/68
[2017-10-04] MEDS: NEO/POLY/BAC (NEOSPORIN) OINT 15 GM TUBE TOP SCH (08:01)
[2017-10-04] MEDS: SENNA W/DOCUSATE (SENOKOT S) TABLET PO SCH (08:17)
[2017-10-04] MEDS: LACTOBACILLUS Acidoph/Bulgar (LACTINEX/FLORANEX) TAB PO SCH (08:17)
[2017-10-04] MEDS: ASPIRIN E.C. 325 MG (ECOTRIN) TABLET PO SCH (08:17)
[2017-10-04] MEDS: MELOXICAM 7.5 MG (MOBIC) TABLET PO SCH (08:17)
[2017-10-04] MEDS: ENOXAPARIN 40 MG/0.4 ML (LOVENOX) SYR SC SCH (08:18)
--- NOTE | 2017-10-04 09:22 | Physical Therapy Daily Note ---
PT Daily Note-Current Subjective Patient in bed pre tx, agrees to PT, has pain of 8/10 when up. Appearance Patient in recliner post tx with legs elevated, has nurse call, phone, tray, all needs met. Patient encouraged to perform QS while she is up. Mental Status Patient Orientation: Normal For Age Attachments: Polar Pack Transfers Functional [place] Measure 0=Not Assessed/NA 4=Minimal Assistance 1=Total Assistance 5=Supervision or Setup 2=Maximal Assistance 6=Modified [place] 3=Moderate Assistance 7=Complete IndependenceIRFPAI Quality Coding Scale 6 Independent with activity with or without an assistive device 5 Patient requires set up or clean up by helper. Patient completes activity by themselves 4 Supervision or touching assist (CGA). [place] provide cues , steadying assist 3 The helper provides less than half the effort to complete the activity 2 The helper provides more than half the effort to complete the activity 1 Dependent. The helper does all the effort to complete an activity 7 Patient refused to complete or attempt activity 9 The patient did not perform the activity before the current illness or injury 88 Not attempted due to Medical conditions or safety concerns Transfers (B, C, W/C) (FIM): 4 Scootin Rollin Supine to/from Sit: 5 Sit to/from Stand: 4 Bed to/from Chair: 4 CGA for sit to stand and transfers, cues for safety and hand placement Weight Bearing Right Lower Extremity: Right Weight Bearing/Tolerated Left Lower Extremity: Left Full Weight Bearing Gait Training Gait (FIM): 4 Distance: 250' Gait Level of Assist: 4 Gait Persons Needed: 1 Gait Assistive Device: FWW CGA very stiff right knee, slightly flexed the whole time, step-to gait pattern Exercises Supine Ex: Ankle pumps, Quad Set, Heel Slides, Short Arc Quads, Straight leg raise Supine Reps: 10 Treatments bed mobility and transfers, ambulation, functional strengthening Assessment Current Status: Fair Progress improving ambulation and transfers PT Short Term Goals Short Term Goals Time Frame: Oct 10, 2017 Transfers (B,C,W/C) (FIM): 5 Gait (FIM): 5 Gait Distance Comment: 200' Gait Level of Assist: 5 Gait Assistive Device: FWW PT Plan Problem List Problem List: Activity Tolerance, Functional Strength, Safety, Balance, Gait, Transfer, Bed Mobility, ROM Treatment/Plan Treatment Plan: Continue Plan of Care Treatment Plan: Bed Mobility, Education, Functional Activity Gay, Functional Strength, Gait, Safety, Therapeutic Exercise, Transfers Treatment Duration: Oct 10, 2017 Frequency: 11 times per week Estimated Hrs Per Day: .25 hour per day (15-30') Patient and/or Family Agrees t: Yes Safety Risks/Education Patient Education: Gait Training, Transfer Techniques, Correct Positioning, Safety Issues Teaching Recipient: Patient Teaching Methods: Demonstration, Discussion Response to Teaching: Reinforcement Needed Time/GCodes Time In: 800 Time Out: 815 Total Billed Treatment Time: 15 Total Billed Treatment 1 visit GT 10' EX 5' VIK PAYTON PT Oct 04, 2017 09:22
[2017-10-04 12:00] VITALS: BP 128/76
--- NOTE | 2017-10-04 13:18 | Progress Note-Standard ---
Standard Progress Note Progress Notes/Assess & Plan Date Seen by Provider: Oct 02, 2017 Time Seen by Provider: 09:50 Progress/Assessment & Plan Anesthesia Note (Post-dated -- procedure done on 10-02-17 from 0950 to 1000) Pt ID and S/E. Right femoral nerve block requested by Dr Hernandez for post-op pain management. +/- fem block discussed and consent signed. Sterile prep with ChloraPrep and sterile ultrasound cover used to identify the femoral nerve. Versed 2 mg IV was given for sedation during the procedure. A 2" Stimuplex needle used in addition to the ultrasound and a good quadriceps twitch was noted down to 0.5 mA. 30 mL 0.5% Bupivicaine injected with aspiration every 5 mL. No increased pressure noted by Axel Coronel, BEA who assisted me with the procedure. Pt tolerated the procedure well. JADE CISSE DO Oct 04, 2017 13:18
--- NOTE | 2017-10-04 14:40 | Physical Therapy Daily Note ---
PT Daily Note-Current Subjective Agreeable to PT. During treatment, pt becomes tearful. Reports she is going home today.. Pain Numeric Pain Scale: 8 Location: Right Location Body Site: Knee Pain Description: Ache (/sore) Mental Status Patient Orientation: Person, Place, Time, Situation Transfers Functional [place] Measure 0=Not Assessed/NA 4=Minimal Assistance 1=Total Assistance 5=Supervision or Setup 2=Maximal Assistance 6=Modified [place] 3=Moderate Assistance 7=Complete IndependenceIRFPAI Quality Coding Scale 6 Independent with activity with or without an assistive device 5 Patient requires set up or clean up by helper. Patient completes activity by themselves 4 Supervision or touching assist (CGA). [place] provide cues , steadying assist 3 The helper provides less than half the effort to complete the activity 2 The helper provides more than half the effort to complete the activity 1 Dependent. The helper does all the effort to complete an activity 7 Patient refused to complete or attempt activity 9 The patient did not perform the activity before the current illness or injury 88 Not attempted due to Medical conditions or safety concerns Pt is able to transfer out of bed using her arms to lift her affected leg out of bed. Pt able to transfer sit to/from stand with SBA. Weight Bearing Right Lower Extremity: Right Weight Bearing/Tolerated Left Lower Extremity: Left Full Weight Bearing Gait Training Gait Assistive Device: FWW Pt ambulated x 250 ft with FWW with knee flexed pattern on the right with SBA. Tends to walk on her toes but is able to put her heel down. Exercises Seated Therapy Exercises: Ankle pumps, Long arc quads, Hip flexion, Hamstring Curls Seated Reps: 15 (To promote strength and ROM for normalized gait) Assessment Current Status: Good Progress Pt progressing. Pt experiencing pain this afternoon. She also seems anxious about discharging today. Her mobility is functional and safe. She continues to have ROM and strength deficits and altered gait pattern due to this. PT Short Term Goals Short Term Goals Time Frame: Oct 10, 2017 Transfers (B,C,W/C) (FIM): 5 Gait (FIM): 5 Gait Distance Comment: 200' Gait Level of Assist: 5 Gait Assistive Device: FWW PT Plan Problem List Problem List: Activity Tolerance, Functional Strength, Safety, Gait, Transfer Treatment/Plan Treatment Plan: Continue Plan of Care (vs discharge) Treatment Plan: Bed Mobility, Education, Functional Activity Gay, Functional Strength, Gait, Safety, Therapeutic Exercise, Transfers Treatment Duration: Oct 10, 2017 Frequency: 11 times per week Estimated Hrs Per Day: .25 hour per day (15-30') Patient and/or Family Agrees t: Yes Safety Risks/Education Patient Education: Gait Training Teaching Recipient: Patient Teaching Methods: Demonstration, Discussion Response to Teaching: Reinforcement Needed Discharge Recommendations Therapy D/C Recommendations: Physical Therapy Home Care Time/GCodes Time In: 1330 Time Out: 1355 Total Billed Treatment Time: 25 Total Billed Treatment visit EX 10 GT 15 BRODY JACOBS PT Oct 04, 2017 14:40
--- NOTE | 2017-10-05 12:53 | Discharge Summary ---
Diagnosis/Chief Complaint Date of Admission Oct 02, 2017 at 08:50 Date of Discharge Oct 04, 2017 at 15:00 Discharge Date: Oct 04, 2017 Discharge Time: 1200 Admission Diagnosis Admission Diagnosis Primary OA right knee Discharge Diagnosis Primary OA right knee s/p right TKA Reason Hospital Visit scheduled right TKA Discharge Summary Procedures: Right Total Knee Arthroplasty Consultations Internal Medicine Discharge Physical Examination Allergies: Coded Allergies: No Known Drug Allergies (Unverified , 09/20/17) Vitals & I&Os Vital Signs Date Time Temp Pulse Resp B/P (MAP) Pulse Ox O2 Delivery O2 Flow Rate FiO2 10/04/17 15:00 10/04/17 12:00 98.2 98 20 96 Room Air General Appearance: Alert, Oriented X3 HEENT: PERRLA Respiratory: Clear to Auscultation Cardiovascular: Regular Rate Abdominal: Normal Bowel Sounds, No Tenderness Extremities: No Clubbing, No Cyanosis, No Edema, Normal Pulses Skin: No Rashes, No Breakdown Neuro: Normal Speech, Normal Tone, Sensation Intact Psych/Mental Status: Mental Status NL Hospital Course The patient was seen in the clinic setting and had failed conservative treatment from Primary OA of her right knee. On the date of admission she was taken to the OR where the above procedure was performed without complications. She was admitted for DVT prophylaxis, monitoring of labs, as well as antibiotic prophylaxis. Overall she recovered well and her hospital stay was uneventful. She was discharged to home on POD #2. Labs Laboratory Tests 10/04/17 05:51: White Blood Count 6.9, Red Blood Count 2.92L, Hemoglobin 9.0L, Hematocrit 28L, Mean Corpuscular Volume 96, Mean Corpuscular Hemoglobin 31, Mean Corpuscular Hemoglobin Concent 32, Red Cell Distribution Width 12.9, Platelet Count 178, Mean Platelet Volume 8.4, Sodium Level 140, Potassium Level 3.7, Chloride Level 107, Carbon Dioxide Level 24, Anion Gap 9, Blood Urea Nitrogen 7, Creatinine 0.61, Estimat Glomerular Filtration Rate > 60, BUN/Creatinine Ratio 11, Glucose Level 113H, Calcium Level 8.3L Discharge Instructions to patient/family Please see electronic discharge instructions given to patient. Discharge Medications Reviewed and agree with Discharge Medication list on patient's Discharge Instruction sheet Clinical Quality Measures DVT/VTE Risk/Contraindication: Risk Factor Score Per Nursin RFS Level Per Nursing on Admit: 4+=Very High GAVI,VINAY E [employer] PL[employer] SUPERINTENDENT Oct 05, 2017 12:53
== END 2017-10-04 15:00 | disposition home health service (06) | DRG 470 ==
LOC: SURG 08:50 → SURGICAL 08:50 → 4TH 13:42
PROVIDERS: ADMIT Orthopaedic Surgery; ATTEND Orthopaedic Surgery
PROC: 3E0T3BZ Introduction of Anesthetic Agent into Peripheral Nerves and Plexi, Percutaneous Approach (ICD-10-PCS; 2017-10-02)
PROC: 0SRC0J9 Replacement of Right Knee Joint with Synthetic Substitute, Cemented, Open Approach (ICD-10-PCS; principal; 2017-10-02 10:20)
DX: M17.11 Unilateral primary osteoarthritis, right knee (principal); D62 Acute posthemorrhagic anemia; Z85.3 Personal history of malignant neoplasm of breast; Z90.11 Acquired absence of right breast and nipple
CPT/HCPCS: 36415; 73560; 80048; 85027; 94664